=== PATIENT | female | born 1955 | race Caucasian/White ===

== ENCOUNTER → 2018-04-22 | Outpatient (CLI) | payer OTHER ==
[~2018-04-22] MED LIST: GADOBUTROL 10 ML VIAL IVP ONE
== END ==
LOC: FIMAGING 15:08
PROVIDERS: ATTEND Family Medicine
DX: L72.0 Epidermal cyst (principal); R90.82 White matter disease, unspecified
CPT/HCPCS: 82565-PO; A9585

== ENCOUNTER → 2019-01-10 | Outpatient (CLI) | payer OTHER | LOC: FIMAGING 18:40 | DX: Z09 Encounter for follow-up examination after completed treatment for conditions other than malignant neoplasm (principal); Z86.011 Personal history of benign neoplasm of the brain; Z98.890 Other specified postprocedural states | CPT/HCPCS: 70551-PN ==

== ENCOUNTER → 2019-03-05 | Outpatient (CLI) | payer OTHER | LOC: FIMAGING 14:47 | PROVIDERS: ATTEND Internal Medicine Hematology & Oncology | DX: Z12.31 Encounter for screening mammogram for malignant neoplasm of breast (principal); Z85.3 Personal history of malignant neoplasm of breast; Z98.890 Other specified postprocedural states ==

== ENCOUNTER 2019-04-16 05:54 | Day surgery (SDC) | payer OTHER | END 2019-04-16 10:00 | disposition home or self-care (01) | LOC: FSGY 05:54 ==